=== PATIENT | female | born 1965 | race Caucasian/White ===

== ENCOUNTER 2016-08-11 05:27 | Emergency (ER) | payer SELFPAY ==
[2016-08-11] MEDS ORDERED: SODIUM CHLORIDE 0.9% 500 ML IV STA (05:41)
[2016-08-11] MEDS ORDERED: ADENOSINE 3 MG/ML 2 ML VIAL IVP STA (05:41)
[2016-08-11] MEDS ORDERED: ASPIRIN 81 MG CHEW PO STA (05:41)
--- NOTE | 2016-08-11 05:46 | ED ---
Arrhythmia/Palpitations HPI - General Stated Complaint: HIGH HR Time Seen by Provider: 08/11/16 05:41 Source: patient Limitations: no limitations - History of Present Illness Initial Comments: This patient's 51-year-old woman who presents to be evaluated for rapid heart rate. Patient states that her gotten up around 3 AM to get her for work and when she got up at that time her heart start racing. She started feeling anxious, she had some nausea and did vomit one time. She states she has had previous episodes of a rapid heartbeat and that she also had an episode of atrial fibrillation. Patient denies fever or chills, chest pain, dyspnea. MD Complaint: rapid heart beat Onset/Timin -: hour(s) Context: awoke with symptoms Arrhythmia History: atrial fibrillation, SVT Associated Symptoms: nausea/vomiting - Related Data Home Medications Medication Instructions Recorded Confirmed Naproxen Sodium [Aleve] 220 mg PO Q12HR PRN 01/29/16 08/11/16 Tiotropium 18 Mcg/Puff [Spiriva] 18 mcg INHALATION DAILY PRN 01/29/16 08/11/16 Previous Rx's Medication Instructions Recorded Albuterol Inhaler [Ventolin Hfa 1 - 2 puff INHALATION Q6HR PRN #1 01/30/16 Inhaler] inhaler Allergies Allergy/AdvReac Type Severity Reaction Status Date / Time No Known Allergies Allergy Verified 08/11/16 05:44 Review of Systems ROS Statement: Those systems with pertinent positive or pertinent negative responses have been documented in the HPI. ROS Other: All systems not noted in ROS Statement are negative. Constitutional: Denies: fever, chills Respiratory: Reports: dyspnea. Denies: cough, wheezes Cardiovascular: Reports: palpitations. Denies: chest pain, edema, syncope Gastrointestinal: Reports: nausea, vomiting. Denies: abdominal pain, diarrhea, hematemesis, melena, hematochezia Genitourinary: Denies: dysuria, hematuria Musculoskeletal: Denies: back pain Skin: Denies: rash Neurological: Denies: headache, weakness, numbness Psychiatric: Reports: anxiety Past Medical History Past Medical History: Atrial Fibrillation, COPD, GERD/Reflux Additional Past Medical History / Comment(s): Paroxysmal afib. History of Any Multi-Drug Resistant Organisms: None Reported Past Surgical History: Section, Tonsillectomy Additional Past Surgical History / Comment(s): SINUS SURG, d&c, laparoscopy with aspiration R ovarian cyst. Past Anesthesia/Blood Transfusion Reactions: Postoperative Nausea & Vomiting ( PONV) Past Psychological History: Anxiety Additional Psychological History / Comment(s): Pt resides with spouse and her mother lives with them. She is independent. Smoking Status: Current every day smoker (Half a packet a day) Past Alcohol Use History: Heavy Additional Past Alcohol Use History / Comment(s): Pt states she drinks 4-5 beers 3 or 4 nights a week. She started smoking in 1984 and is a 1/2ppd smoker. Past Drug Use History: None Reported - Past Family History Father Family Medical History: Cancer, Liver Disease Additional Family Medical History / Comment(s): Father at the age of 57 yrs from cirrhosis of the liver and lymphoma. Mother Family Medical History: COPD, Hypertension Additional Family Medical History / Comment(s): Mother is 68 yrs old. General Exam General appearance: alert, in no apparent distress, obese Head exam: Present: atraumatic, normocephalic Eye exam: Present: normal appearance. Absent: scleral icterus, conjunctival injection ENT exam: Present: normal oropharynx Neck exam: Present: normal inspection, full ROM Respiratory exam: Present: wheezes (There is a trace expiratory wheeze). Absent : respiratory distress, rales, rhonchi, stridor, decreased breath sounds Cardiovascular Exam: Present: normal rhythm, tachycardia, normal heart sounds. Absent: systolic murmur, diastolic murmur, rubs, gallop GI/Abdominal exam: Present: soft. Absent: distended, tenderness, guarding, rebound, mass Extremities exam: Present: normal inspection, normal capillary refill. Absent: pedal edema, calf tenderness Back exam: Present: normal inspection. Absent: CVA tenderness (R), CVA tenderness (L) Neurological exam: Present: alert Skin exam: Present: warm, dry, intact, normal color. Absent: rash Course Vital Signs 08/11/16 08/11/16 08/11/16 05:38 05:42 05:43 Temperature 98 F Pulse Rate 196 H 198 H 90 Respiratory 20 22 16 Rate Blood Pressure 152/81 155/89 153/86 O2 Sat by Pulse 98 99 100 Oximetry 08/11/16 06:48 Temperature 97.9 F Pulse Rate 91 Respiratory 18 Rate Blood Pressure 136/84 O2 Sat by Pulse 98 Oximetry - Reevaluation(s) Reevaluation #1: We did administer adenosine for the patient SVT and she went into a normal sinus rhythm with a rate in the 90s. 08/11/16 05:53 Patient reevaluated after resolution of the SVT and she states that all of her symptoms are resolving. EKG Findings - EKG Comments: EKG Findings:: The 12-lead EKG does show a narrow complex tachycardia with a rate of approximately 196 bpm that does appear to be SVT. There is ST depression in leads V4 through 6 suggestive of possible subendocardial injury. Medical Decision Making - Medical Decision Making Patient has remained without symptoms since she converted back to sinus rhythm. Discussed appropriate follow-up with the environmental engineering manager for Holter monitoring versus electrophysiology study. Patient does feel well for outpatient follow- up. Discussed appropriate return parameters. - Lab Data Result diagrams: 08/11/16 05:50 08/11/16 05:50 Lab Results 08/11/16 08/11/16 08/11/16 Range/Units 05:50 05:50 05:50 WBC 6.3 (3.8-10.6) k/uL RBC 4.04 (3.80-5.40) m/uL Hgb 12.7 (11.4-16.0) gm/dL Hct 38.7 (34.0-46.0) % MCV 95.8 (80.0-100.0) fL MCH 31.4 (25.0-35.0) pg MCHC 32.8 (31.0-37.0) g/dL RDW 17.6 H (11.5-15.5) % Plt Count 384 (150-450) k/uL Neutrophils % 55 % Lymphocytes % 27 % Monocytes % 10 % Eosinophils % 3 % Basophils % 1 % Neutrophils # 3.5 (1.3-7.7) k/uL Lymphocytes # 1.7 (1.0-4.8) k/uL Monocytes # 0.7 (0-1.0) k/uL Eosinophils # 0.2 (0-0.7) k/uL Basophils # 0.0 (0-0.2) k/uL Hypochromasia Moderate Poikilocytosis Slight Anisocytosis Slight Macrocytosis Slight Sodium 141 (137-145) mmol/L Potassium 3.9 (3.5-5.1) mmol/L Chloride 104 (98-107) mmol/L Carbon Dioxide 25 (22-30) mmol/L Anion Gap 12 mmol/L BUN 9 (7-17) mg/dL Creatinine 0.72 (0.52-1.04) mg/dL Est GFR (MDRD) Af Amer >60 (>60 ml/min/1.73 sqM) Est GFR (MDRD) Non-Af >60 (>60 ml/min/1.73 sqM) Glucose 104 H (74-99) mg/dL Calcium 9.8 (8.4-10.2) mg/dL Magnesium 1.6 (1.6-2.3) mg/dL Total Bilirubin 0.8 (0.2-1.3) mg/dL AST 46 H (14-36) U/L ALT 42 (9-52) U/L Alkaline Phosphatase 101 (38-126) U/L Troponin I <0.012 (0.000-0.034) ng/mL Total Protein 7.7 (6.3-8.2) g/dL Albumin 4.3 (3.5-5.0) g/dL TSH 2.650 (0.465-4.680) mIU/L - EKG Data -: EKG Interpreted by Ca EKG shows normal: sinus rhythm, axis (Normal), intervals (Normal), QRS complexes (Normal), ST-T waves Rate: normal (Proximally 91 bpm) Critical Care Time Critical Care Time: Yes (35 minutes) Disposition Clinical Impression: Supraventricular tachycardia Disposition: HOME SELF-CARE Condition: Good Instructions: Supraventricular Tachycardia (ED) Referrals: Maurilio Metzger DO [Primary Care Provider] - 1-2 days Alexandre Palomares MD [STAFF PHYSICIAN] - 1-2 days
[2016-08-11] MEDS ORDERED: LORazepam 2 MG/ML SYRINGE IV STA (05:51)
[2016-08-11] MEDS ORDERED: ONDANSETRON 4 MG/2 ML VIAL IVP STA (05:56)
[2016-08-11 06:07] LABS: Anisocytosis Slight; Basophils % (A) 1 %; CH 31.3; CHCM 32.5; Eosinophils # (A) 0.2 k/uL (0-0.7); Eosinophils % (A) 3 %; HCT 38.7 % (34.0-46.0); HDW 3.94; HGB 12.7 gm/dL (11.4-16.0); Hypochromasia Moderate; Luc # (Auto) 0.24; Luc % (Auto) 4; Lymphocytes # (A) 1.7 k/uL (1.0-4.8); Lymphocytes % (A) 27 %; MCH 31.4 pg (25.0-35.0); MCHC 32.8 g/dL (31.0-37.0); MCV 95.8 fL (80.0-100.0); Macrocytosis Slight; Mean Platelet Volume 6.7; Monocytes # (A) 0.7 k/uL (0-1.0); Monocytes % (A) 10 %; Neutrophils # (A) 3.5 k/uL (1.3-7.7); Neutrophils % (A) 55 %; Poikilocytosis Slight; RBC 4.04 m/uL (3.80-5.40); RDW 17.6 % (11.5-15.5); WBC 6.3 k/uL (3.8-10.6); WBC (Perox) 6.37
[2016-08-11 06:14] LABS: ALT 42 U/L (9-52); AST 46 U/L (14-36); Alkaline Phosphatase 101 U/L (38-126); Anion Gap 12 mmol/L; Blood Urea Nitrogen 9 mg/dL (7-17); Calcium 9.8 mg/dL (8.4-10.2); Carbon Dioxide 25 mmol/L (22-30); Chloride 104 mmol/L (98-107); Glucose 104 mg/dL (74-99); Magnesium 1.6 mg/dL (1.6-2.3); Non-African American GFR(MDRD) >60 (>60 ml/min/1.73 sqM); Potassium 3.9 mmol/L (3.5-5.1); Sodium 141 mmol/L (137-145); Total Bilirubin 0.8 mg/dL (0.2-1.3); Total Protein 7.7 g/dL (6.3-8.2)
[2016-08-11 06:49] VITALS: RESP 18
--- NOTE | 2016-08-11 06:52 | XR ---
EXAM: XR Chest, 2 Views. CLINICAL HISTORY: Reason: dysrhythmia TECHNIQUE: Frontal and lateral views of the chest. COMPARISON: CXR 01/29/16 FINDINGS: Lungs: Unremarkable. No consolidation. Pleural space: Unremarkable. No pneumothorax. Heart: Unremarkable. No cardiomegaly. Mediastinum: Unremarkable. Bones/joints: Unremarkable. IMPRESSION: Unremarkable chest x-rays.
[2016-08-11 08:27] VITALS: BP 128/84; PULSE 86; TEMP 98.1
== END 2016-08-11 08:32 | disposition home or self-care (01) ==
LOC: EC 05:27
DX: I47.1 Supraventricular tachycardia (principal); J44.9 Chronic obstructive pulmonary disease, unspecified; Z79.899 Other long term (current) drug therapy; F17.200 Nicotine dependence, unspecified, uncomplicated
CPT/HCPCS: 36415; 93005; 80053; 83735; 84443; 84484; 85025; 71020; 99285; 96374; 96375 ×2; 96361; J2060; J2405; J0153